=== PATIENT | female | born 1985 | race Caucasian/White ===

== ENCOUNTER 2016-11-26 12:38 | Emergency (ER) | payer OTHER ==
--- NOTE | ~2016-11-26 | CT71 ---
[facility] A Service of [facility] RADIOLOGY TEXT RESULTS PATIENT: LEOPOLDO MARCUS LOCATION: [facility] : [birth year] UNIT #: [id number] AGE: [address]: Ale Rojas MD SEX: F ORDER DR: [id number] [facility]. [place], [place] [address] [id number] E MR#: [id number] Acc #: [id number] NAME: LEOPOLDO MARCUS : 1985 SEX: F STUDY DATE/TIME: 11/26/2016 13:28 UNIT: [facility] ROOM: STUDY DESCRIPTION: CT Head Wo Contrast Attending Physician: Ale Rojas M.D. Ordering Physician: Ale Rojas M.D. Primary Care Physician: No Primary Care Physician MEDICAL IMAGING REPORT This report is preliminary unless electronic signature is present EXAM CT head without contrast. INDICATION Frontal headache since last night. Patient has a history of miscarriages. TECHNIQUE Axial CT images were obtained from vertex of the skull through skull base and intravenous contrast was administered. This CT exam was performed with one or more of the following radiation dose reduction techniques: automatic exposure control, adjustment of mA and/or kV according to patient size, and iterative reconstruction. FINDINGS No acute intracranial hemorrhage is identified. Brain parenchyma is normal in attenuation with no focal areas of decreased attenuation seen. There is no midline shift or mass effect. Ventricles are normal in size, patient does have some mucosal thickening identified within the ethmoid sinuses as well as some inspissated secretions seen within the sphenoid sinuses. Mastoid air cells appear clear. There is mucosal thickening identified within the right maxillary sinus. No aggressive osseous abnormalities are seen. And there are no focal soft tissue abnormalities. IMPRESSION 1. No acute intracranial process is identified. Specifically, there is no evidence of acute hemorrhage, mass lesion or acute infarct. 2. Sinus inflammatory changes as noted above. Dictated by... Emani Ohara M.D. THIS IS AN ELECTRONICALLY VERIFIED REPORT [facility] A Service of [facility] RADIOLOGY TEXT RESULTS PATIENT: LEOPOLDO MARCUS LOCATION: [facility] : [birth year] UNIT #: [id number] AGE: [address]: Ale Rojas MD SEX: F ORDER DR: Emani Ohara M.D. at 11/26/2016 6:31 PM AFF/gz TD: 11/26/2016 15:20 JOB #: [id number] MEDICAL IMAGING REPORT Page 1 of 1 COPY
[2016-11-26 13:49] LABS: BASOPHIL% 0.3 % (0-2.5); EOSINOPHIL# 0.2 X10e3 (0-0.7); EOSINOPHIL% 2.5 % (0.0-7.0); HEMATOCRIT 40.9 % (35.0-45.0); HEMOGLOBIN 13.6 gm/dL (12.0-16.0); LYMPHOCYTE# 1.4 X10e3 (1.0-3.5); LYMPHOCYTE% 20.5 % (17.0-45.0); MEAN CELL VOLUME 86.4 FL (83-96); MEAN CORPUSCULAR HEMOGLOBIN 28.8 PG (28-34); MEAN CORPUSCULAR HGB CONC 33.3 g/dL (30-36); MEAN PLATELET VOLUME 9.8 FL (6.5-11.5); MONOCYTE# 0.6 X10e3 (0-1.0); MONOCYTE% 8.4 % (3.0-12.0); NEUTROPHIL# 4.8 X10e3 (1.5-7.1); NEUTROPHIL% 68.3 % (40-75); PLATELET COUNT 181 X10e3 (140-420); RED BLOOD COUNT 4.74 X10e (3.90-5.30); RED CELL DISTRIBUTION WIDTH 13.5 % (11.0-15.5)
[2016-11-26 13:52] LABS: DIFF IND NO
[2016-11-26 14:16] LABS: ALBUMIN SERUM 3.7 g/dL (3.5-5.0); BILIRUBIN, DIRECT 0.1 mg/dL (0.0-0.2); BILIRUBIN,INDIRECT 1.2 mg/dL (0.0-0.9); BILIRUBIN,TOTAL 1.3 mg/dL (0.2-2.0); BUN/CREATININE RATIO 15.71; CALCIUM SERUM 8.6 mg/dL (8.4-10.2); CREATININE SERUM 0.7 mg/dL (0.6-1.4); GLOM FILT RATE Estimated 116.3 mL/min (>60); PROTEIN TOTAL SERUM 6.8 g/dL (6.0-8.3)
[2016-11-26 14:28] LABS: INR 1.1; PARTIAL THROMBOPLASTIN TIME 25.2 SECONDS (23.5-31.3); PROTHROMBIN TIME (PATIENT) 11.4 SECONDS (9.6-11.5)
== END 2016-11-26 15:50 | disposition home or self-care (01) ==
LOC: CED 12:38
PROVIDERS: Emergency Medicine
DX: R51 Headache (principal)
CPT/HCPCS: 36415; 70450; 80048; 80076; 84703; 85025; 85610; 85730; 96361; 96374; 96375; 99284; J1100; J1200; J1885; J2765

== ENCOUNTER 2016-12-30 22:49 | Emergency (ER) | payer OTHER | END 2016-12-31 01:46 | disposition home or self-care (01) | LOC: CED 22:49 | DX: J06.9 Acute upper respiratory infection, unspecified (principal) | CPT/HCPCS: 87651; 99283 ==

== ENCOUNTER 2017-01-26 22:00 | Emergency (ER) | payer OTHER | END 2017-01-27 01:55 | disposition home or self-care (01) | LOC: CED 22:00 | DX: R51 Headache (principal); R11.2 Nausea with vomiting, unspecified | CPT/HCPCS: 84703; 96361; 96374; 96375; 99284; J1100; J1200; J1885; J2405; J2765 ==

== ENCOUNTER 2017-04-21 10:57 | Emergency (ER) | payer OTHER ==
[~2017-04-21] VITALS: Ht 165.1 cm; Wt 77.1 kg
[2017-04-21 11:36] LABS: URINE SOURCE CLEAN CATCH
[2017-04-21 11:50] LABS: URINE APPEARANCE SL HAZY; URINE BLOOD NEG (NEG); URINE COLOR AMBER; URINE GLUCOSE NORM (NORM); URINE KETONE NEG (NEG); URINE LEUKOCYTE ESTERASE 3+ (NEG); URINE NITRATE NEG (NEG); URINE PROTEIN 1+ (NEG); URINE SPECIFIC GRAVITY 1.025 (1.003-1.035); URINE UROBILINOGEN 4 MG/DL (NORM)
[2017-04-21 11:56] LABS: CULTURE INDICATED? YES; URINE BACTERIA AUWI 4+ (NEGATIVE); URINE SQUAMOUS EPITHELIAL CELL MANY /[HPF]; UWBCS1 AUWI 25-50 (0-5)
[2017-04-21 12:08] LABS: URINE BILIRUBIN NEG (NEG)
[2017-04-21 12:09] LABS: URINE CRYSTALS CALCIUM OXALATE /[HPF]
[2017-04-21 12:10] LABS: URINE MUCUS PRESENT
== END 2017-04-21 12:55 | disposition home or self-care (01) ==
LOC: CED 10:57
PROVIDERS: Emergency Medicine
DX: O23.41 Unspecified infection of urinary tract in pregnancy, first trimester (principal); Z3A.01 Less than 8 weeks gestation of pregnancy
CPT/HCPCS: 81003; 84703; 87086; 99284

== ENCOUNTER 2017-04-27 02:21 | Emergency (ER) | payer OTHER ==
[~2017-04-27] VITALS: Ht 165.1 cm; Wt 77.1 kg
== END 2017-04-27 04:59 | disposition home or self-care (01) ==
LOC: CED 02:21
DX: O46.91 Antepartum hemorrhage, unspecified, first trimester (principal)
CPT/HCPCS: 99283

== ENCOUNTER 2017-05-09 22:21 | Emergency (ER) | payer OTHER ==
[~2017-05-09] VITALS: Ht 160 cm; Wt 81.2 kg
--- NOTE | ~2017-05-09 | EKG ---
PATIENT: LEOPOLDO MARCUS UNIT #: [id number] Ventricular Rate: 67 BPM Atrial Rate: 67 BPM P-R Interval: 142 ms QRS Duration: 76 ms Q-T Interval: 412 ms QTC Calculation(Bezet): 435 ms P [place]: 39 degrees Calculated R [place]: 22 degrees Calculated T [place]: 41 degrees Diagnosis Line: Normal sinus rhythm with sinus arrhythmia Diagnosis Line: Normal ECG Diagnosis Line: Confirmed by PETE LEW MD ([id number]) on Diagnosis Line: 05/11/2017 12:30:08 PM INTERPRETING MD: LOUANN HO
[2017-05-09 23:17] LABS: BASOPHIL# 0.1 X10e3 (0-0.3); BASOPHIL% 0.6 % (0-2.5); EOSINOPHIL# 0.1 X10e3 (0-0.7); HEMATOCRIT 38.8 % (35.0-45.0); HEMOGLOBIN 13.3 gm/dL (12.0-16.0); LYMPHOCYTE# 1.2 X10e3 (1.0-3.5); LYMPHOCYTE% 14.6 % (17.0-45.0); MEAN CELL VOLUME 85.5 FL (83-96); MEAN CORPUSCULAR HEMOGLOBIN 29.3 PG (28-34); MEAN CORPUSCULAR HGB CONC 34.3 g/dL (30-36); MEAN PLATELET VOLUME 9.4 FL (6.5-11.5); MONOCYTE# 0.5 X10e3 (0-1.0); MONOCYTE% 6.1 % (3.0-12.0); NEUTROPHIL# 6.5 X10e3 (1.5-7.1); NEUTROPHIL% 77.7 % (40-75); PLATELET COUNT 214 X10e3 (140-420); RED BLOOD COUNT 4.54 X10e (3.90-5.30); RED CELL DISTRIBUTION WIDTH 13.3 % (11.0-15.5); WHITE BLOOD COUNT 8.4 X10e3 (4.0-10.5)
[2017-05-09 23:19] LABS: DIFF IND NO
[2017-05-09 23:36] LABS: CALCIUM SERUM 8.8 mg/dL (8.4-10.2); CREATININE SERUM 0.5 mg/dL (0.6-1.4); GLOM FILT RATE Estimated 129.9 mL/min (>60); POTASSIUM 3.8 mmol/L (3.5-5.1)
[2017-05-10 01:27] LABS: URINE SOURCE CLEAN CATCH
[2017-05-10 01:30] LABS: URINE APPEARANCE CLEAR; URINE BILIRUBIN NEG (NEG); URINE BLOOD 1+ (NEG); URINE COLOR YELLOW; URINE GLUCOSE NEG (NEG); URINE KETONE NEG (NEG); URINE LEUKOCYTE ESTERASE TRACE (NEG); URINE NITRATE NEG (NEG); URINE PH 6.5 (5-8); URINE PROTEIN NEG (NEG); URINE SPECIFIC GRAVITY 1.008 (1.003-1.035)
[2017-05-10 01:33] LABS: URINE BACTERIA AUWI NEG (NEGATIVE); URINE SQUAMOUS EPITHELIAL CELL NONE SEEN /[HPF]; UWBCS1 AUWI 0-2 (0-5)
[2017-05-10 01:34] LABS: CULTURE INDICATED? NO
[2017-05-12 07:01] LABS: CHLAMYDIA TRACH Detected (Not Detected); N GONOR Not Detected (Not Detected)
== END 2017-05-10 02:25 | disposition home or self-care (01) ==
LOC: CED 22:21
PROVIDERS: Emergency Medicine
DX: O20.0 Threatened abortion (principal); Z3A.09 9 weeks gestation of pregnancy
CPT/HCPCS: 36415; 80048; 81003; 84702; 85025; 86850; 86900; 86901; 87491; 87591; 87808; 87905; 93005; 96360; 99284